=== PATIENT | female | born 1985 | race Caucasian/White ===

== ENCOUNTER 2016-11-05 16:37 | Emergency (ER) | payer OTHER ==
[2016-11-05] MEDS ORDERED: FLEXERIL PO ONE (20:32)
[2016-11-05] MEDS ORDERED: TORADOL IM ONE (20:32)
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
[2016-11-05] MEDS ORDERED: TORADOL ONE (20:48)
[2016-11-05 21:27] VITALS: BP 139/81
== END 2016-11-05 21:35 | disposition home or self-care (01) ==
LOC: ED 16:37
DX: S39.012A Strain of muscle, fascia and tendon of lower back, initial encounter (principal); S16.1XXA Strain of muscle, fascia and tendon at neck level, initial encounter; Z90.710 Acquired absence of both cervix and uterus; V79.59XA Passenger on bus injured in collision with other motor vehicles in traffic accident, initial encounter; Y93.89 Activity, other specified; Y92.89 Other specified places as the place of occurrence of the external cause; Y99.8 Other external cause status
CPT/HCPCS: 96372; 99282; J1885